=== PATIENT | male | born 1985 | race Caucasian/White ===

== ENCOUNTER 2017-08-14 19:12 | Emergency (ER) | payer OTHER ==
[~2017-08-14] VITALS: Ht 180.3 cm; Wt 92.1 kg
[2017-08-14 21:24] VITALS: BP 145/98
== END 2017-08-14 21:24 | disposition home or self-care (01) ==
LOC: ED 19:12
DX: S00.211A Abrasion of right eyelid and periocular area, initial encounter (principal); Z88.1 Allergy status to other antibiotic agents; X58.XXXA Exposure to other specified factors, initial encounter; Y93.89 Activity, other specified; Y92.89 Other specified places as the place of occurrence of the external cause; Y99.8 Other external cause status
CPT/HCPCS: Q0162